=== PATIENT | male | born 1975 | race Caucasian/White ===

== ENCOUNTER 2021-08-06 14:14 | Emergency (ER) | payer OTHER ==
[~2021-08-06 14:14] MED LIST: AMOXICILLIN875 MG PO; AUGMENTIN 875-1 EACH PO; BACTRIM DS TAB1 EACH PO; BASAGLAR K100 UNIT/1 SC; BONE ESSENT166.75 MG PO; CIPRO500 MG PO; CLARITIN10 M2 PO; DAILY MULTIPLE1 EAC1 PO; ENOXAPARIN40 MG/0.4 SC; FEOSOL325 MG PO; GLUCOPHAGE500 MG PO; GLUCOTROL 10 MG10 MG PO; HUMALOG 10100 UNITS/ SC; HUMALOG100 UNIT/3 SQ; IBUPROFEN800 MG PO; INVANZ 1 GM VIAL1 GM IV; KEFLEX CAP 500500 MG PO; LO-DOSE ASPIRIN81 MG PO; LORTAB 5-325 M1 EACH PO; LOVENOX40 MG/0.4 SQ; NORCO 5-325 TA1 EACH PO; PRAVASTATIN SOD10 MG PO; PROZAC20 MG PO; TRULICITY1.5 MG/0.5 SQ; VIAGRA100 MG PO; VITAMIN D21250 MCG PO; ZESTRIL2.5 MG PO
[2021-08-06 14:44] LABS: HEMOGLOBIN 16.3 gm/dl (14.0-17.5); RED BLOOD COUNT 5.75 M/UL (4.20-5.50)
[2021-08-06 15:07] LABS: BUN/CREATININE RATIO 15 (0-10)
== END 2021-08-06 21:10 | disposition expired ==
LOC: ER1 14:14
PROVIDERS: Emergency Medicine
DX: I46.9 Cardiac arrest, cause unspecified (principal); E11.9 Type 2 diabetes mellitus without complications; Z20.822 Contact with and (suspected) exposure to COVID-19
CPT/HCPCS: 31500; 71045; 80053; 82550; 82553; 83874; 84484; 85025; 92950; 93005; 96374; 96375; 99285; J0171; J0461; J1265; J1644; J2270; J2405; J3475; Q9965; U0002